=== PATIENT | female | born 1955 | race Caucasian/White ===

== ENCOUNTER 2021-01-30 13:41 | Observation (INO) | payer OTHER ==
[~2021-01-30] VITALS: Ht 154.9 cm; Wt 95.2 kg
[~2021-01-30 13:41] MED LIST: Aspir 8181 MG PO; CYCL10 PO; HYDACE5325 PO; Lisinopril2.5 MG; METO25ER PO; OMEP10ER PO; PANT40 PO; PROACE100 PO; RXCYCL10 PO; RXHYD5325 PO; RXPROACE PO; TELM80
[2021-01-30] MEDS ORDERED: LISI20 PO (18:26)
[2021-01-30] MEDS ORDERED: HYDCHL25 PO (18:26)
[2021-01-30] MEDS ORDERED: METO50ER PO (18:26)
[2021-01-30] MEDS ORDERED: Ativan1 MG PO (18:27)
[2021-01-30] MEDS ORDERED: OMEP20ER PO (18:27)
[2021-01-30 18:55] LABS: BASOPHILS ABSOLUTE AUTO 0.02 K/mm3 (0.00-0.23); BASOPHILS PERCENT AUTO 0 % (0-2); EOSINOPHILS PERCENT AUTO 0 % (0-6); Hematocrit 43.2 % (33.0-51.0); Hemoglobin 14.1 g/dL (11.5-16.0); IMMATURE GRAN ABSOLUTE AUTO 0.02 K/mm3 (0.00-0.10); IMMATURE GRAN PERCENT AUTO 0 % (0-1); LYMPHOCYTES ABSOLUTE AUTO 0.74 K/mm3 (0.84-5.20); LYMPHOCYTES PERCENT AUTO 10 % (21-46); MONOCYTES ABSOLUTE AUTO 0.48 K/mm3 (0.16-1.47); MONOCYTES PERCENT AUTO 6 % (4-13); Mean Corpuscular HGB 30.2 pg (26.0-34.0); Mean Corpuscular HGB Conc 32.6 g/dL (31.5-36.5); Mean Corpuscular Volume 93 fL (80-100); Mean Platelet Volume 10.5 fL (9.1-12.4); NEUTROPHILS ABSOLUTE AUTO 6.23 K/mm3 (1.96-9.15); NEUTROPHILS PERCENT AUTO 83 % (41-73); Platelet Count 219 K/mm3 (150-400); RDW Coefficient Variation 14.2 % (11.7-14.2); RDW Standard Deviation 47.7 fL (35.1-46.3); Red Blood Cell Count 4.67 M/mm3 (3.80-5.20); White Blood Cell Count 7.49 K/mm3 (4.00-11.30)
[2021-01-30 19:05] LABS: Alanine Aminotransfer (ALT/SGP 41 U/L (12-78); Albumin, Blood 3.7 g/dL (3.4-5.0); Albumin/Globulin Ratio 0.9 (0.8-1.8); Alk Phos 70 U/L (50-136); Anion Gap 4 mmol/L (6-16); Aspartate Aminotrans (AST/SGOT 30 U/L (12-37); Bilirubin, Total 0.5 mg/dL (0.1-1.0); Blood Urea Nitrogen 17 mg/dL (8-24); Bun/Creatinine Ratio 19.7 (12.0-20.0); CO2, Blood 30 mmol/L (21-32); Calcium, Blood 9.2 mg/dL (8.5-10.1); Chloride, Blood 102 mmol/L (98-108); Creatinine, Blood 0.86 mg/dL (0.40-1.00); Globulin, Blood 4.2 g/dL (2.2-4.0); Glomerular Filtration Rate >60 (60-); Glucose, Blood 102 mg/dL (70-99); Potassium, Blood 3.8 mmol/L (3.5-5.5); Sodium, Blood 136 mmol/L (136-145); Total Protein, Blood 7.9 g/dL (6.4-8.2)
[2021-01-30 19:30] LABS: Source, Urine Clean Catch
[2021-01-30 19:35] LABS: Appearance, Urine Hazy (Clear); Bilirubin, Urine Neg (Neg); Blood, Urine 2+ (Neg); Color, Urine Yellow (P-Yellow); Glucose Qualitative, Urine Neg (Neg); Ketones, Urine 2+ (Neg); Leukocyte Esterase, Urine 3+ (Neg); Nitrite, Urine Neg (Neg); Protein, Urine 2+ (Neg); Specific Gravity, Urine 1.025 (1.003-1.022); Urobilinogen, Urine NORM (Normal)
[2021-01-30 19:51] LABS: White Blood Cells, Urine 50-100 /hpf (0-5)
[2021-01-30 19:53] LABS: Bacteria Many /hpf; Red Blood Cells, Urine 0-2 /hpf (0-2); Squamous Epithelial Cells Few /hpf (Few); Transitional Epithelial Cells Rare /hpf (0-Rare)
--- NOTE | 2021-01-31 04:10 | NUR ---
PT ADMITTED FROM ED. VSS. ON 1L O2. PAIN MANAGED WELL W/ IV DILAUDID AND FENTANYL. PT C/O NAUSEA AFTER IV DILAUDID, ZOFRAN GIVEN W/ GOOD EFFECT. CONTINOUS IV FLUIDS INFUSING. DENIES SOB/CP. PER PT, COVID SYMPTOMS HAVE IMPROVED. PT NPO AT MIDNIGHT. COVID SWAB PERFORMED. USING CALL LIGHT TO MAKE NEEDS KNOWN.
[2021-01-31 04:42] LABS: SARS-Cov-2 (COVID-19) PCR, MMC POSITIVE (NEGATIVE)
[2021-01-31 05:25] LABS: BASOPHILS ABSOLUTE AUTO 0.01 K/mm3 (0.00-0.23); BASOPHILS PERCENT AUTO 0 % (0-2); EOSINOPHILS PERCENT AUTO 0 % (0-6); Hematocrit 36.3 % (33.0-51.0); Hemoglobin 11.9 g/dL (11.5-16.0); IMMATURE GRAN ABSOLUTE AUTO 0.01 K/mm3 (0.00-0.10); IMMATURE GRAN PERCENT AUTO 0 % (0-1); LYMPHOCYTES ABSOLUTE AUTO 0.62 K/mm3 (0.84-5.20); LYMPHOCYTES PERCENT AUTO 11 % (21-46); MONOCYTES ABSOLUTE AUTO 0.44 K/mm3 (0.16-1.47); MONOCYTES PERCENT AUTO 8 % (4-13); Mean Corpuscular HGB 30.6 pg (26.0-34.0); Mean Corpuscular HGB Conc 32.8 g/dL (31.5-36.5); Mean Corpuscular Volume 93 fL (80-100); Mean Platelet Volume 10.3 fL (9.1-12.4); NEUTROPHILS ABSOLUTE AUTO 4.37 K/mm3 (1.96-9.15); NEUTROPHILS PERCENT AUTO 80 % (41-73); Platelet Count 179 K/mm3 (150-400); RDW Coefficient Variation 14.7 % (11.7-14.2); RDW Standard Deviation 50.8 fL (35.1-46.3); Red Blood Cell Count 3.89 M/mm3 (3.80-5.20); White Blood Cell Count 5.45 K/mm3 (4.00-11.30)
[2021-01-31 05:54] LABS: Alanine Aminotransfer (ALT/SGP 31 U/L (12-78); Albumin/Globulin Ratio 0.9 (0.8-1.8); Alk Phos 56 U/L (50-136); Anion Gap 4 mmol/L (6-16); Aspartate Aminotrans (AST/SGOT 17 U/L (12-37); Bilirubin, Total 0.2 mg/dL (0.1-1.0); Blood Urea Nitrogen 19 mg/dL (8-24); Bun/Creatinine Ratio 22.2 (12.0-20.0); CO2, Blood 30 mmol/L (21-32); Chloride, Blood 103 mmol/L (98-108); Creatinine, Blood 0.86 mg/dL (0.40-1.00); Globulin, Blood 3.4 g/dL (2.2-4.0); Glomerular Filtration Rate >60 (60-); Glucose, Blood 112 mg/dL (70-99); Potassium, Blood 3.8 mmol/L (3.5-5.5); Sodium, Blood 137 mmol/L (136-145); Total Protein, Blood 6.4 g/dL (6.4-8.2)
--- NOTE | 2021-01-31 17:19 | NUR ---
01/31/21 1719 Ellie Weiss PT RECOVERED IN OR BY Vernon NÚÑEZ AND Eliana HERNANDEZ
--- NOTE | 2021-01-31 19:49 | NUR ---
PATIENT CAME BACK FROM PACU TODAY AT 1818 01/31/21. PATIENT IS ALERT AND ORIENTED X4. VS ARE WNL BUT IS ON 6L NC. PATIENT REPORTS NOT HAVING PAIN AT THIS TIME. SHE HAS 3 LAP SITES ON THE ABD THAT ARE C/D/I WITH STERI STRIPS. SHE DENIES NUMBNESS AND TINGLING IN ALL EXTREMITIES. PATIENT IS ABLE TO WIGGLE FINGERS AND TOES WHEN ASKED. SHE IS CURRENTLY EATING JELLO AND DRINKING WATER. CALL LIGHT IS WITHIN REACH.
[2021-02-01 04:16] LABS: BASOPHILS ABSOLUTE AUTO 0.01 K/mm3 (0.00-0.23); BASOPHILS PERCENT AUTO 0 % (0-2); EOSINOPHILS PERCENT AUTO 0 % (0-6); Hematocrit 34.4 % (33.0-51.0); Hemoglobin 10.9 g/dL (11.5-16.0); IMMATURE GRAN ABSOLUTE AUTO 0.03 K/mm3 (0.00-0.10); IMMATURE GRAN PERCENT AUTO 0 % (0-1); LYMPHOCYTES ABSOLUTE AUTO 0.53 K/mm3 (0.84-5.20); LYMPHOCYTES PERCENT AUTO 8 % (21-46); MONOCYTES ABSOLUTE AUTO 0.33 K/mm3 (0.16-1.47); MONOCYTES PERCENT AUTO 5 % (4-13); Mean Corpuscular HGB Conc 31.7 g/dL (31.5-36.5); Mean Corpuscular Volume 95 fL (80-100); Mean Platelet Volume 10.2 fL (9.1-12.4); NEUTROPHILS ABSOLUTE AUTO 5.86 K/mm3 (1.96-9.15); NEUTROPHILS PERCENT AUTO 87 % (41-73); Platelet Count 175 K/mm3 (150-400); RDW Coefficient Variation 14.5 % (11.7-14.2); Red Blood Cell Count 3.63 M/mm3 (3.80-5.20); White Blood Cell Count 6.76 K/mm3 (4.00-11.30)
[2021-02-01 04:38] LABS: Albumin, Blood 2.7 g/dL (3.4-5.0); Albumin/Globulin Ratio 0.8 (0.8-1.8); Bilirubin, Total 0.1 mg/dL (0.1-1.0); Bun/Creatinine Ratio 25.2 (12.0-20.0); Calcium, Blood 7.8 mg/dL (8.5-10.1); Creatinine, Blood 1.03 mg/dL (0.40-1.00); Globulin, Blood 3.3 g/dL (2.2-4.0); Potassium, Blood 4.2 mmol/L (3.5-5.5)
--- NOTE | 2021-02-01 05:09 | NUR ---
SHIFT SUMMARY POD1 LAP APPY, A/O X4, VSS, TOLERATING PO, VOIDING, BM SMEAR THIS SHIFT, PAIN WELL MANAGED PER EMAR, STABLE ON RA W/ O2 SAT > 95%, NO ACUTE EVENTS THIS SHIFT. CALL LIGHT IN REACH, WILL CTM AND REPORT TO ONCOMING DAY RN.
--- NOTE | 2021-02-01 09:05 | NUR ---
BP 100/44 HELD PT'S MORNING BLOOD PRESSURE MEDS.
--- NOTE | 2021-02-01 09:18 | NUR ---
DR DUMONT IN TO SEE PT. DR LUCERO IN EARLIER.
[2021-02-01] MEDS ORDERED: ACET325 PO (13:10)
[2021-02-01] MEDS ORDERED: VISBIOME 112.51 EACH PO (13:11)
[2021-02-01] MEDS ORDERED: CEFP200 PO (13:11)
[2021-02-01] MEDS ORDERED: HYDR1TAB94 PO (13:12)
--- NOTE | 2021-02-01 13:47 | NUR ---
Update 02/01/21 1333: Discharging home per Dr. Chan. Spoke with pt. and reviewed discharge plan. will come to pick her up and also pick up and delivery driver any needed medications. Pt. states that she is doing well, no concerns. Offered to scheduled F/U appointment with PCP Tena White. Pt. declined to schedule at this time, but will schedule as needed. NOV 04/19/2021. Confirmed she is scheduled to see Dr. Gibson within 2 weeks. Pt. is aware that she can call Blanca with any concerns.
--- NOTE | 2021-02-01 13:54 | NUR ---
discharged REVIEWED DC INSTRUCTIONS W/PT; VERBALIZED UNDERSTANDING. DC'D IV, CATHETER INTACT. CALLED PRESCRIPTIONS INTO [facility] IN [facility] PER PT REQUEST. PT LEFT UNIT IN/WC W/MASK ON. DC PAPERWORK AND POSSESSIONS IN HAND. MET RIDE WAITING OUTSIDE.
== END 2021-02-01 13:40 | disposition home or self-care (01) ==
LOC: ER 13:41 → SURS 19:48
PROVIDERS: Hospitalist; Physician Assistant; Surgery; ADMIT Internal Medicine
PROC: 0DTJ4ZZ Resection of Appendix, Percutaneous Endoscopic Approach (ICD-10-PCS; principal; 2021-01-31 15:00)
DX: K35.80 Unspecified acute appendicitis (principal); U07.1 COVID-19; K21.9 Gastro-esophageal reflux disease without esophagitis; N39.0 Urinary tract infection, site not specified; B95.1 Streptococcus, group B, as the cause of diseases classified elsewhere; I10 Essential (primary) hypertension; K57.30 Diverticulosis of large intestine without perforation or abscess without bleeding; K76.0 Fatty (change of) liver, not elsewhere classified; Z87.891 Personal history of nicotine dependence
CPT/HCPCS: 36415; 74176; 80053; 81001; 83690; 85025; 87086; 87147; 88304; 96365; 96375; 96376; 99285-25; A9270; G0378; J0295; J0696; J1100; J1170; J1885; J2370; J2405; J2543; J2704; J3010; J7030; U0004

== ENCOUNTER 2021-02-06 14:39 | Emergency (ER) | payer OTHER ==
[~2021-02-06] VITALS: Ht 162.6 cm; Wt 72.1 kg
[~2021-02-06 14:39] MED LIST changes: +ACET325 PO; +Ativan1 MG PO; +CEFP200 PO; +HYDCHL25 PO; +HYDR1TAB94 PO; +LISI20 PO; +METO50ER PO; +OMEP20ER PO; +VISBIOME 112.51 EACH PO
[2021-02-06] MEDS ORDERED: ONDA4ODT MM (14:55)
[2021-02-06] MEDS ORDERED: CEFPODOXIME (15:18)
[2021-02-06] MEDS ORDERED: CEFP200 PO (15:18)
[2021-02-06] MEDS ORDERED: CEFPODOXIME 200 MG (15:18)
== END 2021-02-06 15:55 | disposition home or self-care (01) ==
LOC: ER 14:39
DX: U07.1 COVID-19 (principal); I10 Essential (primary) hypertension; Z79.82 Long term (current) use of aspirin; Z79.899 Other long term (current) drug therapy
CPT/HCPCS: 99285

== ENCOUNTER → 2021-04-12 | Outpatient (CLI) | payer OTHER ==
[~2021-04-12] MED LIST changes: +CEFPODOXIME; +CEFPODOXIME 200 MG; +ONDA4ODT MM
[2021-04-13 16:08] LABS: HPV 16 Negative (Negative); HPV 18 Negative (Negative); HPV OTHER HR TYPES Negative (Negative)
== END | disposition home or self-care (01) ==
LOC: LAB 12:15 → LAB SHORT 12:15
PROVIDERS: Obstetrics & Gynecology
DX: Z01.419 Encounter for gynecological examination (general) (routine) without abnormal findings (principal); Z91.048 Other nonmedicinal substance allergy status
CPT/HCPCS: 87624; G0123

== ENCOUNTER 2021-07-06 09:06 | Day surgery (SDC) | payer OTHER ==
[~2021-07-06] VITALS: Ht 154.9 cm; Wt 98.8 kg
== END 2021-07-06 11:35 | disposition home or self-care (01) ==
LOC: ORSCSDS 09:06
PROVIDERS: Internal Medicine Gastroenterology
PROC: 0DJD8ZZ Inspection of Lower Intestinal Tract, Via Natural or Artificial Opening Endoscopic (ICD-10-PCS; principal; 2021-07-06 10:15)
DX: Z12.11 Encounter for screening for malignant neoplasm of colon (principal); Z86.010 Personal history of colon polyps; K57.30 Diverticulosis of large intestine without perforation or abscess without bleeding; I10 Essential (primary) hypertension; K21.9 Gastro-esophageal reflux disease without esophagitis; E66.9 Obesity, unspecified; Z68.41 Body mass index [BMI] 40.0-44.9, adult; Z79.82 Long term (current) use of aspirin; Z79.899 Other long term (current) drug therapy
CPT/HCPCS: J2704; J7120

== ENCOUNTER 2021-08-01 06:04 | Day surgery (SDC) | payer OTHER ==
[~2021-08-01] VITALS: Ht 154.9 cm; Wt 100.9 kg
--- NOTE | 2021-08-01 06:20 | NUR ---
PT ARRIVES WITH SON "NISSA" AT SIDE. Ambulatory in Day Surgery. History, Chart, Medications and Allergies reviewed before start of procedure. Lungs clear T/O to Auscultation. Patient confirms NPO status and agrees with scheduled surgery. Pre-Op teaching done. Pt verbalizes understanding. Patient States Post-Procedure ride home has been arranged if she is discharged tonight.
--- NOTE | 2021-08-01 08:20 | NUR ---
08/01/21 0820 [place] TAPIA CATHETER INSERTED BY DR. CALERO WITH PROCEDURE. Kirt PARK RN
--- NOTE | 2021-08-01 08:48 | NUR ---
CALLED TO OR, ABX ORDERED UNDER WRONG PHYSICIAN. TALKED WITH OSKARRN TO RECHART PRE-OP DOSE AGAIN AT THE 0732 TIME. TALKED WITH PHARMACY, CHANGED ORDER FOR LR.
--- NOTE | 2021-08-01 17:28 | NUR ---
PATIENT ARRIVED TO THE FLOOR FROM PACU AT 1040 THIS AM. PATIENT WAS ALERT AND AWAKE ANSWERING QUESTIONS APPROPRIATELY. NO COMPLAINTS OF PAIN, BUT DID COMPLAIN OF NAUSEA-MEDICATED PER ORDERS AND MED EFFECTIVE. PATIENT CURRENTLY SITTING UP IN BED EATING DINNER WITH NO SIGNS OR SYMPTOMS ACUTE DISTRESS NOTED. CALL LIGHT AND WATER IN EASY REACH. ABLE TO MAKE NEEDS AND WANTS KNOWN. TAPIA CATH PATENT WITH CLEAR YELLOW URINE IN DRAINAGE BAG. IVF CONTINUE. MEDICATED FOR PAIN PER ORDERS. PATIENTS TAPIA AND VAGINAL PACKING TO BE REMOVED AT 0500 IN THE MORNING, PATIENT AWARE. PATIENT HAS BEEN USING IS DIRECTED. VS STABLE. WILL MONITOR.
--- NOTE | 2021-08-02 04:59 | NUR ---
Alert and oriented x'4. Pain management controlled with scheduled tylenol. Slept well through night. Up to bathroom with supervision, gait steady. Removed Santa catheter, tolerated well. Safety maintained, call gaona in reach.
--- NOTE | 2021-08-02 06:54 | NUR ---
Unable to visualize vaginal packing, no void after Santa catheter removed. Reported to am nurse.
[2021-08-02] MEDS ORDERED: DOCU100 PO (09:05)
[2021-08-02] MEDS ORDERED: IBUP400 PO (09:05)
[2021-08-02] MEDS ORDERED: ACET500 PO (09:05)
[2021-08-02] MEDS ORDERED: OXAYDO5 M1 PO (09:06)
== END 2021-08-02 10:00 | disposition home or self-care (01) ==
LOC: ORSCMMR 06:04 → ORD 07:30 → ORSCMMR 07:30 → SURS 10:36 → ORSCMMR 08-02 10:00
PROVIDERS: Obstetrics & Gynecology
PROC: 0JQC0ZZ Repair Pelvic Region Subcutaneous Tissue and Fascia, Open Approach (ICD-10-PCS; principal; 2021-08-01 07:30)
PROC: 0UT97ZZ Resection of Uterus, Via Natural or Artificial Opening (ICD-10-PCS; principal; 2021-08-01 07:30)
PROC: 0UQF0ZZ Repair Cul-de-sac, Open Approach (ICD-10-PCS; principal; 2021-08-01 07:30)
DX: N81.10 Cystocele, unspecified (principal); N80.0 Endometriosis of uterus; N81.5 Vaginal enterocele; D25.9 Leiomyoma of uterus, unspecified; N84.0 Polyp of corpus uteri; I10 Essential (primary) hypertension; K21.9 Gastro-esophageal reflux disease without esophagitis; E66.01 Morbid (severe) obesity due to excess calories; Z68.41 Body mass index [BMI] 40.0-44.9, adult; Z79.899 Other long term (current) drug therapy; Z79.82 Long term (current) use of aspirin
CPT/HCPCS: 88307; 94762; A9270; J0171; J0690; J1100; J1885; J2250; J2370; J2405; J2704; J2710; J3010; J7120

== ENCOUNTER 2022-12-17 11:11 | Day surgery (SDC) | payer OTHER ==
[2022-12-17] VITALS (15 sets, daily range): BP systolic 115–138; BP diastolic 46–64
[~2022-12-17] VITALS: Ht 154.9 cm; Wt 98.7 kg
[~2022-12-17 11:11] MED LIST changes: +ACET500 PO; +DOCU100 PO; +IBUP400 PO; +Lisinopril-Hct1 EAC4 PO; +MELO7.5; +MELO7.5 PO; +OXAYDO5 M1 PO
--- NOTE | 2022-12-17 17:30 | NUR ---
ARRIVAL TO UNIT: PT TRANSFERRED TO UNIT FROM PACU VIA HOSPITAL BED. S/P L TKA, POD 0. PT AOX4. PT RCVD SPINAL ANESTHESIA, STILL RECOVERING. UNABLE TO WIGGLE TOES, BUT REPORTS A TINGLING SENSATION MID THIGH. PPP BILATERALLY, CAP REFILL LESS THAN 3 SECONDS. AQUACEL DRESSING C/D/I. REPORTS MILD, TOLERABLE PAIN, PLAN TO MEDICATE PER EMAR ANESTHESIA WEARS OFF & PO INTAKE TOLERATED. NO REPORTS OF N/V. ABRAN HOSE ON R LEG ONLY, D/T IMPROPER SIZING FOR L EXTREMITIY. BILATERAL SCD'S PLACED CORRECTLY. COOLING DEVICE IN PLACE. TXA & FLUIDS CURRENTLY RUNNING ORDERED.
[2022-12-18 04:19] VITALS: BP 102/53
[2022-12-18 04:49] LABS: BASOPHILS ABSOLUTE AUTO 0.02 K/mm3 (0.00-0.23); BASOPHILS PERCENT AUTO 0 % (0-2); EOSINOPHILS PERCENT AUTO 0 % (0-6); Hematocrit 34.7 % (33.0-51.0); Hemoglobin 11.7 g/dL (11.5-16.0); IMMATURE GRAN ABSOLUTE AUTO 0.07 K/mm3 (0.00-0.10); IMMATURE GRAN PERCENT AUTO 1 % (0-1); LYMPHOCYTES PERCENT AUTO 5 % (21-46); MONOCYTES ABSOLUTE AUTO 0.53 K/mm3 (0.16-1.47); MONOCYTES PERCENT AUTO 4 % (4-13); Mean Corpuscular HGB 30.8 pg (26.0-34.0); Mean Corpuscular HGB Conc 33.7 g/dL (31.5-36.5); Mean Corpuscular Volume 91 fL (80-100); Mean Platelet Volume 10.4 fL (9.1-12.4); NEUTROPHILS ABSOLUTE AUTO 13.12 K/mm3 (1.96-9.15); NEUTROPHILS PERCENT AUTO 91 % (41-73); Platelet Count 232 K/mm3 (150-400); RDW Coefficient Variation 13.3 % (11.7-14.2); White Blood Cell Count 14.44 K/mm3 (4.00-11.30)
[2022-12-18 05:12] LABS: Bun/Creatinine Ratio 27.5 (12.0-20.0); Calcium, Blood 8.4 mg/dL (8.5-10.1); Creatinine, Blood 0.73 mg/dL (0.40-1.00)
--- NOTE | 2022-12-18 05:14 | NUR ---
SHIFT SUMMARY POD1 L TKA. SENSATION AND CIRCULATION REMAINS INTACT IN LLE. DRESSING IS C/D/I. VSS, MILD HYPOTENTION NOTED PT REMAINS ASYMPTOMATIC. PT WAS ABLE TO AMBULATE MULTIPLE TIMES T/O THE NIGHT W/O DIFFICULTY. VOIDING AND TOLLERATING PO INTAKE. MEDICATED FOR PAIN WITH PRN'S AND SCHEDULED. NO ACUTE EVENTS NOTED. PLAN FOR PT TO WORK WITH PHYSICAL THERAPY AND D/C HOME TODAY. THE PATIENT IS CURRENTLY RESTING, IN NO DISTRESS, CALL LIGHT IN REACH
[2022-12-18 06:00] VITALS: BP 108/58
[2022-12-18 07:16] VITALS: BP 98/42
[2022-12-18 08:15] VITALS: BP 121/57
--- NOTE | 2022-12-18 08:36 | NUR ---
MORNING NOTE: PT IS S/P L TKA, POD 1. PT RATES PAIN 4/10, MEDICATED PER EMAR. PT ABLE TO TOLERATE PO INTAKE W/ NO REPORT OF N/V. PT VOIDING W/ NO DIFFICULTY. AQUACEL DRESSING IS C/D/I. L KNEE & LOWER LEG IS WRAPPED IN SHAHAB DRESSING. PPP BILATERALLY. PT AMBULATES W/ SBA FWW, IS UP IN CHAIR. PLAN IS TO WORK WITH PT/OT THIS MORNING. MORNING MEDICATIONS GIVEN PER EMAR. ABRAN HOSE ON R LEG ONLY, BILATERAL SCDS CORRECTLY PLACED. COOLING DEVICE ON L KNEE. DISCHARGE IS ANTICIPATED FOLLOWING PT/OT EVAL.
[2022-12-18] MEDS ORDERED: Percocet 5-3251 EACH PO (09:12)
--- NOTE | 2022-12-18 09:30 | NUR ---
DISCHARGE NOTE: PT S/P L TKA, POD 1. PT/OT EVAL THIS MORNING, PT MET CRITERIA FOR DISCHARGE HOME. VSS. PAIN TOLERABLE W/ PRESCRIBED MEDICATION REGIMEN. TOLERATING PO INTAKE W/ NO N/V. VOIDING W/ NO DIFFICULTY REPORTED. SPOUSE & SON PRESENT AT BEDSIDE DURING PT/OT EVAL & DISCHARGE EDUCATION. PT & FAMILY RECEPTIVE TO EDUCATION & AGREE W/ DISCHARGE. IV RMVD. AQUACEL DRESSINGS PROVIDED FOR CHANGES AT HOME. COOLING DEVICE & PERSONAL BELONGING GIVEN. PT TRANSFERRED TO PERSONAL VEHICLE VIA WHEELCHAIR.
== END 2022-12-18 09:42 | disposition home or self-care (01) ==
LOC: ORSCMMR 11:11 → ORD 12:00 → ORSCMMR 12:30 → ORD 12:30 → SURS 17:14 → ORSCMMR 12-18 09:42 → SURS 12-18 09:42
PROVIDERS: Orthopaedic Surgery
PROC: 0SRD06A Replacement of Left Knee Joint with Oxidized Zirconium on Polyethylene Synthetic Substitute, Uncemented, Open Approach (ICD-10-PCS; principal; 2022-12-17 12:30)
PROC: 8E0Y0CZ Robotic Assisted Procedure of Lower Extremity, Open Approach (ICD-10-PCS; principal; 2022-12-17 12:30)
DX: M17.12 Unilateral primary osteoarthritis, left knee (principal); I10 Essential (primary) hypertension; K21.9 Gastro-esophageal reflux disease without esophagitis; E66.9 Obesity, unspecified; Z68.41 Body mass index [BMI] 40.0-44.9, adult; Z79.82 Long term (current) use of aspirin; Z79.899 Other long term (current) drug therapy
CPT/HCPCS: 27447; 20985; S2900; 36415; 73560-LT; 80048; 85025; 97110; 97116; 97161; A9270; C1776; J0171; J0690; J0735; J1100; J1170; J1885; J2250; J2370; J2405; J2704; J2795; J3010; J7120

== ENCOUNTER 2023-08-01 10:29 | Day surgery (SDC) | payer OTHER ==
[~2023-08-01] VITALS: Ht 154.9 cm; Wt 104.2 kg
[~2023-08-01 10:29] MED LIST changes: +Percocet 5-3251 EACH PO
[2023-08-01] MEDS ORDERED: LISINOPRIL-HCT1 EAC1 PO (10:54)
--- NOTE | 2023-08-01 12:19 | NUR ---
08/01/23 1219 Abdullahi Fagan ROPIVACAINE 0.5% 20 MLS MIXED & VERIFIED W/ EPI 0.1MG (1MG/ML) TO MAKE ROPIVACAINE 0.5% 1:200,000 FOR INJECTION AT OPSITE BY DR DANIELS. ALL 20 MLS INJECTED.
--- NOTE | 2023-08-01 14:03 | NUR ---
08/01/23 1403 Tio Feldman PT REPORTED MILD NAUSEA UPON D/C. SHE DESCRIBED NAUSEA LEVEL TOLERABLE AND EXPRESSED READINESS TO RETURN HOME.
[2023-08-01 14:14] VITALS: BP 123/53
== END 2023-08-01 14:24 | disposition home or self-care (01) ==
LOC: ORSCSDS 10:29
PROVIDERS: Orthopaedic Surgery
PROC: 01N50ZZ Release Median Nerve, Open Approach (ICD-10-PCS; principal; 2023-08-01 11:45)
DX: G56.01 Carpal tunnel syndrome, right upper limb (principal); I10 Essential (primary) hypertension; Z79.899 Other long term (current) drug therapy
CPT/HCPCS: A9270; J0330; J0690; J1100; J1885; J2001; J2250; J2405; J2704; J2765; J2795; J3010; J7120

== ENCOUNTER → 2024-06-07 | Outpatient (CLI) | payer OTHER ==
[~2024-06-07] MED LIST changes: +LISINOPRIL-HCT1 EAC1 PO
== END | disposition home or self-care (01) ==
LOC: LAB SHORT 14:45 → LAB 14:45
DX: R30.0 Dysuria (principal)
CPT/HCPCS: 87086; 87147

== ENCOUNTER 2025-06-28 09:51 | Day surgery (SDC) | payer OTHER ==
[2025-06-28] VITALS (17 sets, daily range): BP systolic 110–133; BP diastolic 54–96
[~2025-06-28] VITALS: Ht 154.9 cm; Wt 96.3 kg
[~2025-06-28 09:51] MED LIST changes: +ASPI81CH PO; +CeFAZolin Sodium 2,000 MG in NS 100 ML IV SCH; +Chlorhexidine Mouth Care 15 ML UDC MT SCH; +IBUP200 PO; -METO50ER PO; +Ropivacaine 0.5% HCl/Pf 123.125 MG,EPINEPHrine HCL 0.25 MG,Ketorolac Tromethamine 15 MG... INFIL SCH; +Tranexamic Acid 100 ML IV SCH
[2025-06-28] MEDS ORDERED: CeFAZolin Sodium 2,000 MG VIAL ONE (10:42)
[2025-06-28] MEDS ORDERED: Ondansetron HCl 2 MG / ML 2ML Vial IV PRN ×2 (10:50→14:40)
[2025-06-28] MEDS ORDERED: Metoclopramide HCl 5MG / ML 2ML Vial IV PRN (10:50)
[2025-06-28] MEDS ORDERED: Magnesium Hydroxide Conc 10 ML UDC PO PRN (10:50)
[2025-06-28] MEDS ORDERED: HYDROmorphone HCl/Pf 1MG SYR IV PRN ×3 (11:00→14:40)
[2025-06-28] MEDS ORDERED: FLU VACC TS2025(65UP)/MF59C/PF 45 MCG/0.5 ML SYRINGE IM SCH (11:05)
[2025-06-28] MEDS ORDERED: Midazolam HCl 1MG / ML 2ML Vial ONE (11:43)
[2025-06-28] MEDS ORDERED: FentaNYL Citrate 50 MCG/ML 2 ML Injection ONE (11:43)
--- NOTE | 2025-06-28 12:41 | NUR ---
DENTURES LEFT IN. KNEE HIGH ABRAN HOSE WITH CALF PAS APPLIED LLE. NOZIN X2 TO NARES PER DR DANIELS ORDERS. PURSE AND PATIENT BELONGINGS PLACED IN LABELED BAG UNDER GURNEY.
[2025-06-28] MEDS ORDERED: ePHEDrine Sulfate 50 MG/ML 1ML Injection ONE (13:29)
[2025-06-28] MEDS ORDERED: FentaNYL Citrate 50 MCG/ML 2 ML Injection IV PRN ×2 (14:35)
[2025-06-28] MEDS ORDERED: HydrALAZINE HCl 20 MG / ML 1ML Vial IV PRN (14:40)
[2025-06-28] MEDS ORDERED: Albuterol 2.5 MG/3 ML VIAL INH PRN (14:40)
--- NOTE | 2025-06-28 15:24 | NUR ---
ARRIVAL TO SURG FLOOR S/P R TKA. A&O x4, VSS. R KNEE w/TEFLA, TEGADERM & SHAHAB BANDAGE, NO DRAINAGE, C/D/I. POLAR PACK IN PLACE. UNABLE TO MOVE LEGS DUE TO SPINAL. AWAITING POST OP VOID. SNACKS & DRINKS GIVEN. CURRENTLY RESTING IN BED w/FAMILY AT BEDSIDE. CALL LIGHT WITHIN REACH.
[2025-06-28] MEDS ORDERED: Ketorolac Tromethamine 15mg Vial IV SCH (18:00)
--- NOTE | 2025-06-28 18:07 | NUR ---
SHIFT SUMMARY S/P R TKA. A&O x4, VSS. ABLE TO WIGGLE TOES & MOVE LEGS, BUT STATES RESIDUAL NUMBNESS FROM SPINAL. TOLERATING FOOD & FLUIDS WELL. AWAITING POST OP VOID. R KNEE w/TEFLA, TEGADERM, & SHAHAB BANDAGE, NO DRAINAGE, C/D/I. STATES NO PAIN SINCE ARRIVAL. PLAN TO WORK w/THERAPY IN AM PRIOR TO DC. CURRENTLY RESTING IN BED w/CALL LIGHT WITHIN REACH.
--- NOTE | 2025-06-28 19:25 | NUR ---
ASSUMED CARE POD 0 S/O RIGHT KNEE REVISION. PT A/OX4 WITH VSS. PAIN MANAGED. DENIES N/T, WIGGLES FINGERS AND TOES. YONNY PO INTAKE. AWAITING POST AMBULATION AND VOID. DRESSING, SHAHAB WRAP, SCDS, AND POLAR PACK IN PLACE TO RIGHT KNEE. BRISK CAP REFILL. PT DENIES NEEDS. HAS CALL LIGHT IN REACH. PLAN TO AMBULATE AND VOID WITHIN THE HOUR. PT TO CALL RN WHEN READY. PT VERBALIZED PLAN.
[2025-06-28] MEDS ORDERED: CeFAZolin Sodium 2,000 MG in NS 100 ML IV SCH (20:45)
[2025-06-29 00:11] VITALS: BP 98/54
[2025-06-29 00:27] VITALS: BP 105/55
[2025-06-29 04:58] LABS: BASOPHILS ABSOLUTE AUTO 0.02 K/mm3 (0.00-0.23); BASOPHILS PERCENT AUTO 0 % (0-2); EOSINOPHILS ABSOLUTE AUTO 0.00 K/mm3 (0.00-0.68); EOSINOPHILS PERCENT AUTO 0 % (0-6); Hematocrit 34.1 % (33.0-51.0); Hemoglobin 11.3 g/dL (11.5-16.0); IMMATURE GRAN ABSOLUTE AUTO 0.04 K/mm3 (0.00-0.10); IMMATURE GRAN PERCENT AUTO 0 % (0-1); LYMPHOCYTES ABSOLUTE AUTO 0.82 K/mm3 (0.84-5.20); LYMPHOCYTES PERCENT AUTO 7 % (21-46); MONOCYTES ABSOLUTE AUTO 0.34 K/mm3 (0.16-1.47); MONOCYTES PERCENT AUTO 3 % (4-13); Mean Corpuscular HGB Conc 33.1 g/dL (31.5-36.5); Mean Corpuscular Volume 90 fL (80-100); NEUTROPHILS ABSOLUTE AUTO 10.43 K/mm3 (1.96-9.15); NEUTROPHILS PERCENT AUTO 90 % (41-73); NRBC ABSOLUTE 0.00 K/mm3 (0.00-0.02); NRBC Auto 0.0 /100 WBC (0.0-0.2); Platelet Count 243 K/mm3 (150-400); RDW Coefficient Variation 13.0 % (11.7-14.2); RDW Standard Deviation 42.6 fL (35.1-46.3)
[2025-06-29 05:09] VITALS: BP 116/55
[2025-06-29 05:17] LABS: Anion Gap 11.0 mmol/L (3-11); Blood Urea Nitrogen 23.0 mg/dL (8-24); CO2, Blood 27.0 mmol/L (21-32); Calcium, Blood 8.6 mg/dL (8.5-10.1); Chloride, Blood 103.0 mmol/L (98-108); Creatinine, Blood 0.81 mg/dL (0.40-1.00); Glucose, Blood 162.0 mg/dL (70-99); Potassium, Blood 4.6 mmol/L (3.5-5.5); Sodium, Blood 136.0 mmol/L (136-145)
--- NOTE | 2025-06-29 05:47 | NUR ---
IV UPDATE RN CALLED TO ROOM, PT C/O SWELLING AND PAIN AT IV INSERTION SITE ON LEFT ARM. IV NOTED TO BE INFILTRATED WITH INCREASED REDNESS AND SWELLING. IV REMOVED, CATH INTACT. LUE ELEVATED ABOVE HEART AND WRAPPED IN WARM BLANKETS. PT DECLINED REINSERTION. RISK VS BENEFIT EDUCATION PROVIDED. PT VERBALIZED UNDERSTANDING. DENIES NEEDS. HAS CALL LIGHT IN REACH. 50ML OUT 100ML INFUSED WITH 0445 DOSE OF CEFAZOLIN.
--- NOTE | 2025-06-29 05:53 | NUR ---
SHIFT SUMMARY POD 1 S/P RIGHT KNEE LYSIS OF ADHESIONS. SHAHAB WRAP AND DRESSING CDI. POLAR, SCDS, AND COMPRESSION STOCKINGS IN PLACE. PAIN MANAGED PER EMAR. PT VOIDED AND AMBULATED TO BATHROOM X 2 WITH SBA, FWW, GB. YONNY PO INTAKE, DENIES N/V. IS A/OX4 WITH VSS. PLAN TO WORKING WITH THERAPY TODAY AND D/C HOME. PT DRESSED IN BED, WATCHING TV. HAS CALL LIGHT IN REACH. WILL GIVE REPORT TO ONCOMING RN.
[2025-06-29 07:12] VITALS: BP 91/44
--- NOTE | 2025-06-29 09:58 | NUR ---
DISCHARGE SUMMARY POD 1 R TKA REVISION. A&O x4, VSS. R KNEE w/TELFA & TEGADERM, C/D/I. WORKED w/THERAPY TODAY - AMBULATED IN HALLWAY & ROOM. TOLERATED FOOD & FLUIDS WELL. VOIDED SUCCESSFULLY. PAIN CONTROLLED WELL PER EMAR. POLAR PACK SENT. DISCHARGE INSTRUCTIONS REVIEWED & GIVEN. AWAITING RIDE TO ESCORT OUT.
== END 2025-06-29 10:30 | disposition home or self-care (01) ==
LOC: UNDOADMIN 09:51 → ORSCMMR 09:51 → SURS 09:51 → EDSTATUS 11:15 → SURS 15:20 → ORSCMMR 06-29 10:30 → SURS 06-29 10:30
PROVIDERS: Orthopaedic Surgery
PROC: 3E03329 Introduction of Other Anti-infective into Peripheral Vein, Percutaneous Approach (ICD-10-PCS; 2025-06-28)
PROC: 3E02340 Introduction of Influenza Vaccine into Muscle, Percutaneous Approach (ICD-10-PCS; 2025-06-28)
PROC: 0SBC0ZZ Excision of Right Knee Joint, Open Approach (ICD-10-PCS; principal; 2025-06-29)
PROC: 0SNC0ZZ Release Right Knee Joint, Open Approach (ICD-10-PCS; 2025-06-29)
DX: T84.82XA Fibrosis due to internal orthopedic prosthetic devices, implants and grafts, initial encounter (principal); M24.661 Ankylosis, right knee; M19.90 Unspecified osteoarthritis, unspecified site; I10 Essential (primary) hypertension; Z96.653 Presence of artificial knee joint, bilateral; Z90.49 Acquired absence of other specified parts of digestive tract; Z90.710 Acquired absence of both cervix and uterus; Z79.899 Other long term (current) drug therapy; Z98.890 Other specified postprocedural states; Z47.1 Aftercare following joint replacement surgery; Z87.39 Personal history of other diseases of the musculoskeletal system and connective tissue; Y83.8 Other surgical procedures as the cause of abnormal reaction of the patient, or of later complication, without mention of misadventure at the time of the procedure; Z23 Encounter for immunization
CPT/HCPCS: 36415; 73560-RT; 80048; 85025; 97116; 97161; 97530; A9270; J0166; J0690; J0735; J1885; J2250; J2704; J2795; J3010; J7120